=== PATIENT | male | born 1965 | race Caucasian/White ===

== ENCOUNTER 2018-09-24 06:25 | Inpatient (IN) ==
--- NOTE | 2018-08-27 12:12 | Anesthesiology Consultation ---
Date of Service August 27, 2018 Assessment & Plan (1) Encounter for pre-operative examination: PCP [facility] ([place]) 09/15 = "Medically stable to proceed with proposed surgical intervention with known associated comorbidities that currently have maximized control." Chart Review Chart Review: Acceptable Risk for Surgery and Patient seen in Pre Admission Testing Teaching & Discussion Instructed NPO after midnight before surgery, except medications with 15 cc of water. Medication instructions provided according to the PAT guidelines. History Surgery Operation Date: 09/24/18 08:00 Proposed Procedures p Right Total Knee Arthroplasty - Cosme Kessler MD Height/Weight Height: 6 ft 1 in Weight: 140.1 kg Allergies Allergy/AdvReac Type Severity Reaction Status Date / Time No Known Allergies Allergy Verified 08/20/18 08:01 Medications Home Medications Medication Instructions Recorded Confirmed Last Taken Nicotine Lozengers 1 dose PO UD 08/20/18 08/20/18 Unknown multivitamin 1 cap PO DAILY 08/20/18 08/20/18 Unknown Past Medical History Medical History Morbid obesity Osteoarthritis Exercise / Class Metabolic Activity II 4-5 Yardwork/Stairs/Walk up hill (Denies CP or SOB with stairs and yardwork) Past Family History Family History Grandfather (Maternal) Family history of prostate cancer Past Surgical History Surgical History History of arthroscopy of left knee History of arthroscopy of right knee X3 History of colonoscopy History of decompression of ulnar nerve LEFT History of deviated nasal septum History of tonsillectomy Past Anesthesia History No Hx of Anesthesia Complications and No Family Hx of Anesthesia Complications SINGLE EPISODE OF BEING COMBATIVE ON EMERGENCE IN 1997 AFTER KNEE SCOPE. History of PONV No Hx of PONV and No Hx of Motion Sickness Social History Smoking Status: Never smoker Do You Dip or Chew Tobacco: Yes (3-4 CHEWS A DAY, TRYING TO QUIT - ADVISED NPO) Hx Alcohol Use: No Hx Substance Use: No substance use type: does not use Review of Systems Pt denies any recent chest pain, shortness of breath, palpitations, cough, fever or URI. Physical Exam Vital Signs BP: 110/75 P: 76bpm SPO2: 97% RA T: 97.7 F R: 16 ENMT Mouth: + dental restorations (two caps on lower rear molars) and + chipped teeth (broken molar rear R lower); no loose teeth Thyromental Distance: > or= 3.5 Finger Breadths (4) Mallampati Class: I Neck normal visual inspection; neck extension not limited Respiratory normal respiratory effort Auscultation: lungs clear to auscultation bilaterally Cardiovascular Rate/Rhythm: regular rate and regular rhythm Heart Sounds: no murmur Vessels: no carotid bruit Extremities: no edema Testing Laboratory Results 08/27/18 12:20 08/27/18 12:20 PT 10.6 Seconds (9.0-12.0) 08/27/18 12:20 INR 1.0 (0.9-1.1) 08/27/18 12:20 APTT 25.4 Seconds (21.0-31.0) 08/27/18 12:20 Hemoglobin A1c 5.9 % (4.5-5.6) H 08/27/18 12:20 Urine Color Yellow 08/27/18 12:20 Urine Appearance Clear (Clear) 08/27/18 12:20 Urine pH 5.5 (4.5-7.5) 08/27/18 12:20 Ur Specific [place] 1.020 (1.000-1.030) 08/27/18 12:20 Urine Protein Negative (Negative) 08/27/18 12:20 Urine Glucose (UA) Negative (Negative) 08/27/18 12:20 Urine Ketones Negative (Negative) 08/27/18 12:20 Urine Nitrite Negative (Negative) 08/27/18 12:20 Ur Leukocyte Esterase Negative (Negative) 08/27/18 12:20 Blood Type A Negative 08/27/18 12:20 Antibody Screen NEGATIVE 08/27/18 12:20 08/27/18 12:20 Urine Culture - Final Urine,Clean Catch No growth - less than 1,000 colonies/mL. Electrocardiogram Date: 08/27/18 Findings: + NSR @ (67) Chest X-Ray Date: 08/27/18 Findings: + NAD
--- NOTE | 2018-08-27 12:13 | PAT Medication Instructions ---
Medication Instructions Date of Service August 27, 2018 Home Medications Nicotine Lozengers 1 dose PO UD multivitamin 1 cap PO DAILY DO NOT take the morning of surgery Nicotine Lozengers 1 dose PO UD multivitamin 1 cap PO DAILY Other Notes If you have any questions please call us at [phone] or [phone] or [phone] or [phone]
--- NOTE | 2018-08-27 13:05 | XRay Report ---
XR chest Pre-admission PA/Lat CLINICAL HISTORY: pat COMPARISON STUDY: No previous studies for comparison. FINDINGS: The bones soft tissues and hemidiaphragms are normal. The cardiomediastinal silhouette is n ormal. The lungs are clear. The pulmonary vasculature is normal. IMPRESSION: Negative chest. The above report was generated using voice recognition software. It may contain grammatical, syntax or spelling errors. Electronically signed by: Kee Dela Cruz M.D. 08/27/2018 1:04 PM
[2018-08-27 15:24] LABS: Basophils # (auto) 0.02 K/uL (0-0.2); Basophils % (auto) 0.3 %; Eosinophils # (auto) 0.16 K/uL (0-0.5); Eosinophils % (auto) 2.3 %; Hematocrit (blood only) 43.2 % (42-52); Hemoglobin 14.4 g/dL (14.0-18.0); Immature Granulocytes # (auto) 0.01 K/uL (0.00-0.02); Immature Granulocytes % (auto) 0.1 %; Lymphocytes # (auto) 2.63 K/uL (1.2-3.4); Lymphocytes % (auto) 38.4 %; Mean Corpuscular Hgb Conc 33.3 g/dL (32-36); Mean Corpuscular Volume 90.4 fL (80-100); Monocytes % (auto) 4.4 %; Neutrophils # (auto) 3.73 K/uL (1.4-6.5); Neutrophils % (auto) 54.5 %; Platelet Count 256 K/uL (130-400); RDW Coefficient of Variation 12.6 % (11.5-14.5); RDW Standard Deviation 41.4 fL (36.4-46.3); Red Blood Count 4.78 M/uL (4.7-6.1); White Blood Count 6.85 K/uL (4.8-10.8)
[2018-08-27 15:25] LABS: Appearance Urine Clear (Clear); Bilirubin Urine Negative (Negative); Blood Urine Negative (Negative); Color Urine Yellow; Glucose Urine UA Negative (Negative); Ketones Urine Negative (Negative); Leukocyte Esterase Urine Negative (Negative); Nitrite Urine Negative (Negative); Protein Urine Negative (Negative); Urobilinogen Urine Negative (Negative); pH Urine 5.5 (4.5-7.5)
[2018-08-27 15:30] LABS: Potassium 4.2 mmol/L (3.5-5.1)
[2018-08-27 15:31] LABS: Albumin Level 3.8 gm/dl (3.4-5.0); BUN Creatinine Ratio 12.3 (10-20); Calcium 9.4 mg/dl (8.5-10.1); Creatinine Clr Calc Pharmacy 113.2 ml/min; Est GFR (African American) 87.4; Est GFR (Non-African American) 75.4
[2018-08-27 15:34] LABS: Partial Thromboplastin Ratio 0.9; Partial Thromboplastin Time 25.4 Seconds (21.0-31.0); Prothrombin Time 10.6 Seconds (9.0-12.0)
[2018-08-28 05:37] LABS: Estimated Average Glucose 123 mg/dl; Hemoglobin A1C 5.9 % (4.5-5.6)
--- NOTE | 2018-09-03 21:17 | History & Physical Report ---
Date of Service September 03, 2018 Assessment & Plan (1) Primary osteoarthritis of right knee: Treatment options were discussed with the patient. He has continued pain despite conservative measures as above. Risks, benefits and alternatives to surgery including but not limited to infection, DVT, pain, stiffness, need for revision surgery, damage to blood vessels, damage to nerves, PE, , were discussed with the patient and they wish to proceed. Plan will be for right total knee arthroplasty. We will plan on aspirin 81mg BID x 30 days for DVT prophylaxis. He plans on attending outpatient PT upon discharge from the hospital. All questions were answered. History of Present Illness Chief Complaint: Right knee pain Primary Care Provider: Earl Carter 53 year old male with no significant past medical history presents with complaints of ongoing right knee pain. He has tried and failed various conservative therapies including cortisone injections, visco supplementation, NSAIDs, and PT. He has continued pain and dysfunction with normal daily activities. He would like to proceed with right knee replacement. Patient denies headaches, sweats, fevers, chills, double vision, blurred vision, cough, sore throat, dysphagia, chest pain, sob, wheezing, n/v/d/c, numbness, tingling, fatigue, urinary symptoms, mood disorders. ROS positive for right knee pain and stiffness. Allergies Allergy/AdvReac Type Severity Reaction Status Date / Time No Known Allergies Allergy Verified 08/20/18 08:01 Home Medications Home Medications Medication Instructions Recorded Confirmed Type Nicotine Lozengers 1 dose PO UD 08/20/18 08/20/18 History multivitamin 1 cap PO DAILY 08/20/18 08/20/18 History Past Med/Surg History Medical History Morbid obesity Osteoarthritis Surgical History History of arthroscopy of left knee History of arthroscopy of right knee X3 History of colonoscopy History of decompression of ulnar nerve LEFT History of deviated nasal septum History of tonsillectomy Family History Grandfather (Maternal) Family history of prostate cancer Social History Preferred Language: Malawian Communication Ability: Effective Commutator Operator Required: No Beliefs That Will Affect Care: None Current Living Situation: Spouse and Foster Care Other Information That Helps Us Care for You: No Feels Safe at Home: Yes Smoking Status: Never smoker Do You Dip or Chew Tobacco: Yes (3-4 CHEWS A DAY, TRYING TO QUIT - ADVISED NPO) Hx Alcohol Use: No Hx Substance Use: No Review of Systems All systems reviewed & are unremarkable except as noted in HPI & below Physical Exam Constitutional: well developed and well nourished; no acute distress Eyes: PERRL, conjunctivae normal, anicteric sclerae ENMT: external ear and nose normal, oropharynx normal Neck: trachea midline, no thyromegaly Respiratory: normal respiratory effort, lungs clear to auscultation Cardiovascular: RRR, no murmur, no edema Musculoskeletal: Right knee: Tenderness medial joint line, stable to valgus and varus stress. Positive Pratima's. ROM 0-130. Skin: no rashes, warm and dry Neurologic: patellar DTR's 2+ bilat, sensation intact Psychiatric: A+Ox3, euthymic affect Results & Data Laboratory Results Lab Results 08/27/18 08/27/18 08/27/18 Range/Units 12:20 12:20 12:20 WBC 6.85 (4.8-10.8) K/uL RBC 4.78 (4.7-6.1) M/uL Hgb 14.4 (14.0-18.0) g/dL Hct 43.2 (42-52) % MCV 90.4 (80-100) fL MCH 30.1 (25-34) pg MCHC 33.3 (32-36) g/dL RDW Std Deviation 41.4 (36.4-46.3) fL RDW Coeff of Kia 12.6 (11.5-14.5) % Plt Count 256 (130-400) K/uL MPV 11.0 H (7.4-10.4) fL Immature Gran % (Auto) 0.1 % Neut % (Auto) 54.5 % Lymph % (Auto) 38.4 % [place] % (Auto) 4.4 % Eos % (Auto) 2.3 % Baso % (Auto) 0.3 % Immature Gran # (Auto) 0.01 (0.00-0.02) K/uL Neut # (Auto) 3.73 (1.4-6.5) K/uL Lymph # (Auto) 2.63 (1.2-3.4) K/uL [place] # (Auto) 0.30 (0.11-0.59) K/uL Eos # (Auto) 0.16 (0-0.5) K/uL Baso # (Auto) 0.02 (0-0.2) K/uL PT 10.6 (9.0-12.0) Seconds INR 1.0 (0.9-1.1) APTT 25.4 (21.0-31.0) Seconds PTT Ratio 0.9 Sodium (136-145) mmol/L Potassium (3.5-5.1) mmol/L Chloride (98-107) mmol/L Carbon Dioxide (21-32) mmol/L Anion Gap (3-11) BUN (7-18) mg/dl Creatinine (0.6-1.4) mg/dl Est Cr Clr Drug Dosing ml/min Est GFR ( Amer) Est GFR (Non-Af Amer) BUN/Creatinine Ratio (10-20) Glucose (70-99) mg/dl Estimat Average Glucose mg/dl Hemoglobin A1c (4.5-5.6) % Calcium (8.5-10.1) mg/dl Albumin (3.4-5.0) gm/dl Urine Color Yellow Urine Appearance Clear (Clear) Urine pH 5.5 (4.5-7.5) Ur Specific [place] 1.020 (1.000-1.030) Urine Protein Negative (Negative) Urine Glucose (UA) Negative (Negative) Urine Ketones Negative (Negative) Urine Blood Negative (Negative) Urine Nitrite Negative (Negative) Urine Bilirubin Negative (Negative) Urine Urobilinogen Negative (Negative) Ur Leukocyte Esterase Negative (Negative) Blood Type Antibody Screen 08/27/18 08/27/18 08/27/18 Range/Units 12:20 12:20 12:20 WBC (4.8-10.8) K/uL RBC (4.7-6.1) M/uL Hgb (14.0-18.0) g/dL Hct (42-52) % MCV (80-100) fL MCH (25-34) pg MCHC (32-36) g/dL RDW Std Deviation (36.4-46.3) fL RDW Coeff of Kia (11.5-14.5) % Plt Count (130-400) K/uL MPV (7.4-10.4) fL Immature Gran % (Auto) % Neut % (Auto) % Lymph % (Auto) % [place] % (Auto) % Eos % (Auto) % Baso % (Auto) % Immature Gran # (Auto) (0.00-0.02) K/uL Neut # (Auto) (1.4-6.5) K/uL Lymph # (Auto) (1.2-3.4) K/uL [place] # (Auto) (0.11-0.59) K/uL Eos # (Auto) (0-0.5) K/uL Baso # (Auto) (0-0.2) K/uL PT (9.0-12.0) Seconds INR (0.9-1.1) APTT (21.0-31.0) Seconds PTT Ratio Sodium 142 (136-145) mmol/L Potassium 4.2 (3.5-5.1) mmol/L Chloride 106 (98-107) mmol/L Carbon Dioxide 30 (21-32) mmol/L Anion Gap 5.0 (3-11) BUN 14 (7-18) mg/dl Creatinine 1.11 (0.6-1.4) mg/dl Est Cr Clr Drug Dosing 113.2 ml/min Est GFR ( Amer) 87.4 Est GFR (Non-Af Amer) 75.4 BUN/Creatinine Ratio 12.3 (10-20) Glucose 104 H (70-99) mg/dl Estimat Average Glucose 123 mg/dl Hemoglobin A1c 5.9 H (4.5-5.6) % Calcium 9.4 (8.5-10.1) mg/dl Albumin 3.8 (3.4-5.0) gm/dl Urine Color Urine Appearance (Clear) Urine pH (4.5-7.5) Ur Specific [place] (1.000-1.030) Urine Protein (Negative) Urine Glucose (UA) (Negative) Urine Ketones (Negative) Urine Blood (Negative) Urine Nitrite (Negative) Urine Bilirubin (Negative) Urine Urobilinogen (Negative) Ur Leukocyte Esterase (Negative) Blood Type A Negative Antibody Screen NEGATIVE Diagnostic Findings Right knee radiographs: [id number] medial compartment, mild medial subluxation. Degenerative changes patellofemoral joint. Periarticular osteophyte formation.
[~2018-09-24 06:25] MED LIST: ACETAMINOPHEN 500 MG TAB PO SCH; CEFAZOLIN 2000MG 2,000 MG/15 ML SYR IV SCH; CeleBREX 200 MG CAP PO SCH; FAMOTIDINE 20 MG TAB PO SCH; LR 500ML BOLUS, THEN 15ML/HR IV SCH; METOCLOPRAMIDE HCL 10 MG TABLET PO SCH; ROPIVACAINE 0.5% HCL/PF 150 MG, BUPIVACAINE 0.5% MPF 30 ML, EPINEPHrine 30MG/30ML (OR U... INSTIL SCH; TRANEXAMIC ACID 1,000 MG **IV Pre-op IV SCH; dexAMETHasone 4 MG TAB PO SCH
[2018-09-24] MEDS ORDERED: BUPIVACAINE 0.5 % 5 MG/1 ML PF 10ML VIAL ONE (06:29)
[2018-09-24] MEDS ORDERED: ROPIVACAINE 0.5% 5 MG/ML 30 ML VIAL ONE (06:29)
[2018-09-24] MEDS ORDERED: TRANEXAMIC ACID 1,000 MG **IV Intra-op IV SCH (06:30)
--- NOTE | 2018-09-24 06:58 | History & Physical Bridge Note ---
Date of Service September 24, 2018 History & Physical Bridge Note I have examined the patient, reviewed the History & Physical and in the interval since the performance of the History & Physical I have noted the following changes of clinical significance: no changes noted
[2018-09-24] MEDS ORDERED: PROPOFOL IV EMULSION 10 MG/ML 20 ML VIAL IV ONE ×3 (07:19→10:10)
[2018-09-24] MEDS ORDERED: LIDOCAINE HCL 2% 2 ML VIAL/AMP(20MG/ML) INFIL ONE (07:19)
[2018-09-24] MEDS ORDERED: ePHEDrine sulfate 50 MG/ML SYR ONE (07:19)
[2018-09-24] MEDS ORDERED: PHENYLEPHRINE 100MCG/ML 5ML SYR ONE (07:19)
[2018-09-24] MEDS ORDERED: MIDAZOLAM HCL 1 MG/ML 2ML VIAL ONE (07:20)
[2018-09-24] MEDS ORDERED: fentaNYL citrate 100 MCG/2 ML VIAL ONE (07:20)
[2018-09-24] MEDS ORDERED: ONDANSETRON INJ 2 MG/ML 2 ML VIAL IV PRN ×2 (08:10→12:00)
[2018-09-24] MEDS ORDERED: HYDROmorphone INJ 1 MG/ML SYRINGE IV PRN (08:10)
[2018-09-24] MEDS ORDERED: ePHEDrine sulfate 50 MG/ML AMP IV PRN (08:10)
[2018-09-24] MEDS ORDERED: KETOROLAC 30 MG/ML VIAL IV PRN (08:10)
[2018-09-24] MEDS ORDERED: ATROPINE SULFATE 0.1 MG/ML 10ML SYR IV PRN (08:10)
[2018-09-24] MEDS ORDERED: ORTHO JOINT ANESTHETIC ONE (08:32)
[2018-09-24] MEDS ORDERED: BACITRACIN INJ 50,000 UNIT VIAL ONE (08:32)
[2018-09-24] MEDS ORDERED: CEFAZOLIN 250 MG/ML 1 GM VIAL ONE (09:19)
--- NOTE | 2018-09-24 10:08 | Operative Report ---
Post Operative Report Pre & Post Diagnosis Operation Date: 09/24/18 09:00 Pre-Op Diagnosis: RIGHT KNEE OSTEOARTHRITIS Post-Op Diagnosis: RIGHT KNEE OSTEOARTHRITIS Procedure Operation Date: 09/24/18 09:00 Actual Procedures p Right Total Knee Arthroplasty(Right) - Cosme Kessler MD Surgeon Cosme Kessler MD Director Of Planning Darien Douglas PA-C Estimated Blood Loss 20 Findings Consistent with Post-Op Diagnosis Specimens Bone and tissue Drains 2 Hemovac Anesthesia Type Spinal MAC Complications none Disposition Accompanied Patient To Recovery: No Disposition: Recovery Room Indications The patient is a 53-year-old male long-standing arthritis of the right knee. He has [id number] medial compartment. He is failed conservative measures including injection anti-inflammatories. He wishes to proceed with a right total knee arthroplasty. Description of Procedure Risks benefits and alternatives of surgery including but not limited to infection, DVT, pain, stiffness, need for surgery, damage to blood vessels, damage to nerves or risks of anesthesia were discussed with the patient and they wished to proceed. The patient was identified and the laterality was confirmed and marked. They received a preoperative antibiotic as well as a spinal anesthetic and an abductor canal block. A well-padded tourniquet was applied and then the limb was prepped and draped in standard manner with ChloraPrep. The limb was exsanguinated and the tourniquet was inflated. I made a standard anterior incision. I sharply incised the skin then utilized Bovie electrocautery to achieve hemostasis. I made a medial parapatellar arthrotomy and mobilized the patella laterally. I then excised the anterior horns of the medial and lateral meniscus as well as the infrapatellar fat pad. I elevated a portion of the MCL off of the tibia. I then pinned into place a patient-matched distal femoral cutting guide and made my distal femoral resectio n. I then pinned into place the 5 in 1 femoral cutting guide. I made my anterior, posterior and chamfer cuts. I then excised the cruciates and the remaining portions of the menisci. I then pinned into place a patient- matched tibial cutting guide and made my tibial resection. I then pinned into place the tibial plate a utilizing alignment gino to confirm rotation. I then cut for the post. Utilizing a lamina belt maker helper and I then removed posterior osteophytes off the femur. I then placed a trial femur into position and cut for the trochlear component. I then sequentially trialed to size the polyethylene until there was good soft tissue balancing and range of motion. I then prepared the patella with a freehand cut utilizing sagittal saw. I sized and drilled for the patella. There was some lateral tracking the patella. I performed a lateral release. I was able to preserve the joint capsule. There was good tracking to the patella after the lateral release was performed. All the trial components were removed. The deep tissues were anesthetized with an ortho mix solution. Then with Simplex HV with gentamicin cement, I cemented my definitive components. Definitive components, Najera and Nephew [place] fork 2: Femur 6 Tibia 6 Poly 9 Patella 35 oval A betadine soak was performed. A deep drain was placed. The arthrotomy was closed with interrupted #1 Vicryl suture subcutaneous tissue was closed with interrupted 2-0 Vicryl suture. The skin was closed with with jean-claude. An Acticoat and Darryl dressing were placed. Sterile dressings were applied. All needle and sponge counts were correct at the end of the procedure patient was transferred to the PACU in stable condition without apparent complication. The PA-C was necessary for assistance with procedure for assistance in positioning, prepping, draping, retraction and closure. I attest to the content of the Intraoperative Record and any orders documented therein. Any exceptions are noted below.
--- NOTE | 2018-09-24 11:27 | XRay Report ---
RIGHT KNEE 2 VIEWS History: Right total knee arthroplasty. Degenerative arthritis. Postop. FINDINGS: The patient is status post a right total knee arthroplasty. The hardware is intact. No frac ture or dislocation. Skin jean-claude and surgical drains are in place. IMPRESSION: Right total knee arthroplasty. No evidence for hardware complication. Electronically signed by: Patric Luna M.D. 09/24/2018 11:25 AM
--- NOTE | 2018-09-24 11:33 | Anesthesiology Progress Note ---
Date of Service September 24, 2018 Anesthesia Post Procedure Vital Signs Vital Signs: Temp Pulse Pulse Resp BP Pulse Ox 09/24/18 11:25 36.2 C L 68 16 99/62 L 97 09/24/18 11:15 67 16 109/64 98 09/24/18 11:05 69 16 109/62 99 09/24/18 10:55 75 16 101/58 L 98 09/24/18 10:47 36.2 C L 80 16 98/54 L 96 09/24/18 07:17 36.4 C L 70 20 136/96 95 Pain Intensity Right Knee: Pain Intensity: 5 Transfer of Care Handoff Completed per policy Notes Mental Status: alert / awake / arousable Patient Amnestic to Procedure: Yes Nausea / Vomiting: adequately controlled Pain: adequately controlled Airway Patency, RR, SpO2: stable & adequate BP & HR: stable & adequate Hydration State: stable & adequate Anesthetic Complications: no major complications apparent
[2018-09-24] MEDS ORDERED: HYDROmorphone INJ 0.5 MG/0.5 ML SYR IV PRN (12:00)
[2018-09-24] MEDS ORDERED: MAGNESIUM HYDROXIDE SUSP 30 ML UDC PO PRN (12:00)
[2018-09-24] MEDS ORDERED: BISACODYL 10 MG SUPP PR PRN (12:00)
[2018-09-24] MEDS ORDERED: NALOXONE HCL 0.4 MG/1 ML VIAL/CARP IV PRN (12:00)
[2018-09-24] MEDS ORDERED: ALUMINUM/MAGNESIUM SUSP 30 ML UDC PO PRN (12:00)
[2018-09-24] MEDS ORDERED: METOCLOPRAMIDE HCL INJ 5 MG/ML 2 ML VIAL IV PRN (12:00)
[2018-09-24] MEDS ORDERED: TAMSULOSIN HCL 0.4 MG CAP PO PRN (12:00)
[2018-09-24] MEDS: ACETAMINOPHEN 500 MG TAB PO SCH ×2 (13:54→22:39)
[2018-09-24] MEDS: CEFAZOLIN 2000MG 2,000 MG/15 ML SYR IV SCH (17:46)
[2018-09-24] MEDS: SODIUM CHLORIDE 0.9% 1000ML 1,000 ML IV SCH (20:36)
[2018-09-24] MEDS: SENNA 8.6 MG TAB PO SCH (20:36)
[2018-09-24] MEDS: ASPIRIN 81 MG ECTAB PO SCH (20:36)
[2018-09-24] MEDS: DOCUSATE SODIUM 100 MG CAP PO SCH (20:36)
[2018-09-25] MEDS: SODIUM CHLORIDE 0.9% 1000ML 1,000 ML IV SCH (01:39)
[2018-09-25] MEDS: CEFAZOLIN 2000MG 2,000 MG/15 ML SYR IV SCH (01:50)
[2018-09-25] MEDS: ACETAMINOPHEN 500 MG TAB PO SCH ×3 (05:53→21:36)
[2018-09-25 06:07] LABS: Hematocrit (blood only) 38.1 % (42-52); Hemoglobin 12.6 g/dL (14.0-18.0); Mean Corpuscular Hgb Conc 33.1 g/dL (32-36); Mean Corpuscular Volume 89.4 fL (80-100); Mean Platelet Volume 10.6 fL (7.4-10.4); Platelet Count 264 K/uL (130-400); RDW Coefficient of Variation 12.8 % (11.5-14.5); RDW Standard Deviation 40.9 fL (36.4-46.3); Red Blood Count 4.26 M/uL (4.7-6.1); White Blood Count 18.53 K/uL (4.8-10.8)
[2018-09-25 06:50] LABS: Calcium 8.2 mg/dl (8.5-10.1); Creatinine Clr Calc Pharmacy 108.6 ml/min; Est GFR (African American) 82.9; Est GFR (Non-African American) 71.5; Potassium 4.1 mmol/L (3.5-5.1)
--- NOTE | 2018-09-25 07:23 | Orthopedic Progress Note ---
Date of Service September 25, 2018 Assessment & Plan (1) Primary osteoarthritis of right knee: POD#1 Right TKA -Pain management -DVT prophylaxis-ASA 81mg BID -PT/OT -D/C planning home with OPPT likely later today as long as PT goes well and hemovac output decreases. Subjective Patient in resting comfortably in bed this morning. Pain well controlled. Did have some foot drop yesterday, this has mostly resolved. No chest pain, sob, dizziness, headache, n/v/d. Review of Systems Review of Systems: All systems reviewed & are unremarkable except as noted in HPI & below Physical Exam Physical Exam: Dressing c/d/i, toes mobile, good DF. No calf tenderness. Sensation and n/v status intact. Results & Data Vital Signs (Past 12 Hours) Vital Signs Temp Pulse Resp BP Pulse Ox 09/25/18 07:22 36.4 C L 76 16 106/68 96 09/25/18 03:41 36.5 C 84 16 108/68 97 09/24/18 23:17 36.9 C 89 18 120/74 96 Laboratory Results Lab Results 08/27/18 08/27/18 08/27/18 Range/Units 12:20 12:20 12:20 WBC 6.85 (4.8-10.8) K/uL RBC 4.78 (4.7-6.1) M/uL Hgb 14.4 (14.0-18.0) g/dL Hct 43.2 (42-52) % MCV 90.4 (80-100) fL MCH 30.1 (25-34) pg MCHC 33.3 (32-36) g/dL RDW Std Deviation 41.4 (36.4-46.3) fL RDW Coeff of Kia 12.6 (11.5-14.5) % Plt Count 256 (130-400) K/uL MPV 11.0 H (7.4-10.4) fL Immature Gran % (Auto) 0.1 % Neut % (Auto) 54.5 % Lymph % (Auto) 38.4 % [place] % (Auto) 4.4 % Eos % (Auto) 2.3 % Baso % (Auto) 0.3 % Immature Gran # (Auto) 0.01 (0.00-0.02) K/uL Neut # (Auto) 3.73 (1.4-6.5) K/uL Lymph # (Auto) 2.63 (1.2-3.4) K/uL [place] # (Auto) 0.30 (0.11-0.59) K/uL Eos # (Auto) 0.16 (0-0.5) K/uL Baso # (Auto) 0.02 (0-0.2) K/uL PT 10.6 (9.0-12.0) Seconds INR 1.0 (0.9-1.1) APTT 25.4 (21.0-31.0) Seconds PTT Ratio 0.9 Sodium (136-145) mmol/L Potassium (3.5-5.1) mmol/L Chloride (98-107) mmol/L Carbon Dioxide (21-32) mmol/L Anion Gap (3-11) BUN (7-18) mg/dl Creatinine (0.6-1.4) mg/dl Est Cr Clr Drug Dosing ml/min Est GFR ( Amer) Est GFR (Non-Af Amer) BUN/Creatinine Ratio (10-20) Glucose (70-99) mg/dl Estimat Average Glucose mg/dl Hemoglobin A1c (4.5-5.6) % Calcium (8.5-10.1) mg/dl Albumin (3.4-5.0) gm/dl Urine Color Yellow Urine Appearance Clear (Clear) Urine pH 5.5 (4.5-7.5) Ur Specific [place] 1.020 (1.000-1.030) Urine Protein Negative (Negative) Urine Glucose (UA) Negative (Negative) Urine Ketones Negative (Negative) Urine Blood Negative (Negative) Urine Nitrite Negative (Negative) Urine Bilirubin Negative (Negative) Urine Urobilinogen Negative (Negative) Ur Leukocyte Esterase Negative (Negative) Blood Type Antibody Screen 08/27/18 08/27/18 08/27/18 Range/Units 12:20 12:20 12:20 WBC (4.8-10.8) K/uL RBC (4.7-6.1) M/uL Hgb (14.0-18.0) g/dL Hct (42-52) % MCV (80-100) fL MCH (25-34) pg MCHC (32-36) g/dL RDW Std Deviation (36.4-46.3) fL RDW Coeff of Kia (11.5-14.5) % Plt Count (130-400) K/uL MPV (7.4-10.4) fL Immature Gran % (Auto) % Neut % (Auto) % Lymph % (Auto) % [place] % (Auto) % Eos % (Auto) % Baso % (Auto) % Immature Gran # (Auto) (0.00-0.02) K/uL Neut # (Auto) (1.4-6.5) K/uL Lymph # (Auto) (1.2-3.4) K/uL [place] # (Auto) (0.11-0.59) K/uL Eos # (Auto) (0-0.5) K/uL Baso # (Auto) (0-0.2) K/uL PT (9.0-12.0) Seconds INR (0.9-1.1) APTT (21.0-31.0) Seconds PTT Ratio Sodium 142 (136-145) mmol/L Potassium 4.2 (3.5-5.1) mmol/L Chloride 106 (98-107) mmol/L Carbon Dioxide 30 (21-32) mmol/L Anion Gap 5.0 (3-11) BUN 14 (7-18) mg/dl Creatinine 1.11 (0.6-1.4) mg/dl Est Cr Clr Drug Dosing 113.2 ml/min Est GFR ( Amer) 87.4 Est GFR (Non-Af Amer) 75.4 BUN/Creatinine Ratio 12.3 (10-20) Glucose 104 H (70-99) mg/dl Estimat Average Glucose 123 mg/dl Hemoglobin A1c 5.9 H (4.5-5.6) % Calcium 9.4 (8.5-10.1) mg/dl Albumin 3.8 (3.4-5.0) gm/dl Urine Color Urine Appearance (Clear) Urine pH (4.5-7.5) Ur Specific [place] (1.000-1.030) Urine Protein (Negative) Urine Glucose (UA) (Negative) Urine Ketones (Negative) Urine Blood (Negative) Urine Nitrite (Negative) Urine Bilirubin (Negative) Urine Urobilinogen (Negative) Ur Leukocyte Esterase (Negative) Blood Type A Negative Antibody Screen NEGATIVE 09/25/18 09/25/18 Range/Units 05:32 05:32 WBC 18.53 H (4.8-10.8) K/uL RBC 4.26 L (4.7-6.1) M/uL Hgb 12.6 L (14.0-18.0) g/dL Hct 38.1 L (42-52) % MCV 89.4 (80-100) fL MCH 29.6 (25-34) pg MCHC 33.1 (32-36) g/dL RDW Std Deviation 40.9 (36.4-46.3) fL RDW Coeff of Kia 12.8 (11.5-14.5) % Plt Count 264 (130-400) K/uL MPV 10.6 H (7.4-10.4) fL Immature Gran % (Auto) % Neut % (Auto) % Lymph % (Auto) % [place] % (Auto) % Eos % (Auto) % Baso % (Auto) % Immature Gran # (Auto) (0.00-0.02) K/uL Neut # (Auto) (1.4-6.5) K/uL Lymph # (Auto) (1.2-3.4) K/uL [place] # (Auto) (0.11-0.59) K/uL Eos # (Auto) (0-0.5) K/uL Baso # (Auto) (0-0.2) K/uL PT (9.0-12.0) Seconds INR (0.9-1.1) APTT (21.0-31.0) Seconds PTT Ratio Sodium 141 (136-145) mmol/L Potassium 4.1 (3.5-5.1) mmol/L Chloride 109 H (98-107) mmol/L Carbon Dioxide 27 (21-32) mmol/L Anion Gap 5.0 (3-11) BUN 16 (7-18) mg/dl Creatinine 1.16 (0.6-1.4) mg/dl Est Cr Clr Drug Dosing 108.6 ml/min Est GFR ( Amer) 82.9 Est GFR (Non-Af Amer) 71.5 BUN/Creatinine Ratio 14.0 (10-20) Glucose 117 H (70-99) mg/dl Estimat Average Glucose mg/dl Hemoglobin A1c (4.5-5.6) % Calcium 8.2 L (8.5-10.1) mg/dl Albumin (3.4-5.0) gm/dl Urine Color Urine Appearance (Clear) Urine pH (4.5-7.5) Ur Specific [place] (1.000-1.030) Urine Protein (Negative) Urine Glucose (UA) (Negative) Urine Ketones (Negative) Urine Blood (Negative) Urine Nitrite (Negative) Urine Bilirubin (Negative) Urine Urobilinogen (Negative) Ur Leukocyte Esterase (Negative) Blood Type Antibody Screen
[2018-09-25] MEDS: DOCUSATE SODIUM 100 MG CAP PO SCH ×2 (07:29→21:35)
[2018-09-25] MEDS: MULTIVITAMIN TAB PO SCH (07:29)
[2018-09-25] MEDS: ASPIRIN 81 MG ECTAB PO SCH ×2 (07:29→21:35)
[2018-09-25] MEDS: OXYCODONE HCL IR 5 MG TAB (IMMEDIATE RELEASE) PO PRN ×2 (07:32→18:45)
--- NOTE | 2018-09-25 07:50 | Anesthesiology Progress Note ---
Date of Service September 25, 2018 Anesthesia Post Procedure Vital Signs Vital Signs: Temp Pulse Pulse Pulse Resp BP Pulse Ox 09/25/18 07:22 36.4 C L 76 16 106/68 96 09/25/18 03:41 36.5 C 84 16 108/68 97 09/24/18 23:17 36.9 C 89 18 120/74 96 09/24/18 14:57 36.9 C 84 17 110/72 94 09/24/18 14:00 78 16 120/71 96 09/24/18 13:00 76 16 107/72 97 09/24/18 12:30 69 18 107/68 97 09/24/18 12:00 36.6 C 65 12 112/66 94 09/24/18 11:45 36.4 C L 68 18 116/66 97 09/24/18 11:35 36.4 C L 72 18 109/65 98 09/24/18 11:25 36.2 C L 68 16 99/62 L 97 09/24/18 11:15 67 16 109/64 98 09/24/18 11:05 69 16 109/62 99 09/24/18 10:55 75 16 101/58 L 98 09/24/18 10:47 36.2 C L 80 16 98/54 L 96 Pain Intensity Right Knee: Pain Intensity: 4 Notes Mental Status: alert / awake / arousable and participated in evaluation Patient Amnestic to Procedure: Yes Nausea / Vomiting: adequately controlled Pain: adequately controlled Airway Patency, RR, SpO2: stable & adequate BP & HR: stable & adequate Hydration State: stable & adequate Neuraxial Anesthesia: was administered and sensory block resolved Anesthetic Complications: no major complications apparent and Pt Satisfied with anesthetic care
[2018-09-25] MEDS: SENNA 8.6 MG TAB PO SCH (21:36)
[2018-09-26] MEDS: OXYCODONE HCL IR 5 MG TAB (IMMEDIATE RELEASE) PO PRN ×2 (04:37→12:20)
[2018-09-26] MEDS: ACETAMINOPHEN 500 MG TAB PO SCH ×2 (05:31→13:18)
[2018-09-26] MEDS: MULTIVITAMIN TAB PO SCH (08:28)
[2018-09-26] MEDS: ASPIRIN 81 MG ECTAB PO SCH (08:28)
[2018-09-26] MEDS: DOCUSATE SODIUM 100 MG CAP PO SCH (08:28)
--- NOTE | 2018-09-26 09:22 | Orthopedic Progress Note ---
Date of Service September 26, 2018 Assessment & Plan (1) Primary osteoarthritis of right knee: POD #2 s/p right TKA Pain is controlled. PT/OT DVT prophylaxis--ASA 81 mg BID and TEDs D/C planning--home today with outpatient PT Subjective Patient in resting comfortably in bed this morning. No complaints. Pain well controlled. No chest pain, sob, dizziness, headache, n/v/d. Physical Exam Constitutional: WD/WN, vitals as above Musculoskeletal: Knee: + surgical incision (Right knee: ROSANNE dressing in place and functioning. ); knee normal to inspection, no deformity, no skin erythema, no ecchymosis and no surgical drain present (Hemovac has been removed after 50 cc of drainage over the previous shift.) Psychiatric: A+Ox3, euthymic affect Results & Data Vital Signs (Past 12 Hours) Vital Signs Temp Pulse Resp BP Pulse Ox 09/26/18 06:57 36.8 C 74 18 122/75 97 09/25/18 23:25 36.7 C 90 16 111/72 97
--- NOTE | 2018-09-28 17:20 | Discharge Summary ---
DISCHARGE DIAGNOSIS: Degenerative joint disease, right knee. SECONDARY DIAGNOSES: Morbid obesity. CONSULTS: None. COMPLICATIONS: None. PROCEDURES: Right total knee arthroplasty performed by Dr. Kessler on 09/24/2018. BRIEF HISTORY: As dictated in the history and physical. HOSPITAL SUMMARY: The patient was admitted on the above-noted date and had the above-noted surgery performed, which he tolerated well. On the first postoperative day, he was resting comfortably in bed. Pain was controlled. He did have some footdrop symptoms the previous day which had mostly resolved by that morning. No chest pain, no shortness of breath. No dizziness or nausea or vomiting. Dressings clean, dry and intact. Toes were mobile. He had good dorsiflexion. No calf tenderness. Sensation and neurovascular status intact. Vital signs were stable. He was afebrile and hemoglobin was 14. He was started on physical therapy protocol and continued on DVT prophylaxis and pain management. It was noted that he was having increased drainage from his Hemovac drain at over 175 mL and Hemovac was continued. By his second postoperative day, he was resting comfortably, had no complaints. Pain was controlled. Darryl dressing was in place. He had no ecchymosis, no erythema. Hemovac had been removed. Vital signs were stable. He was afebrile. He was progressing with his PT and remaining stable. It was felt he could be discharged to home. For further review, please see chart. LABORATORY AND X-RAY DATA: As per chart. DISCHARGE INSTRUCTIONS: The patient was discharged to home in satisfactory condition on 09/25/2018. DIET: Regular. ACTIVITY: Weightbearing as tolerated on the affected extremity. Follow TK instruction sheets and special care instructions as noted. Follow up with Dr. Kessler in 2 weeks. The patient to call for appointment if one has not been made for you. DISCHARGE MEDICATIONS: Acetaminophen 1000 mg p.o. q. 8 hours, aspirin 81 mg p.o. b.i.d., Celebrex 200 mg p.o. b.i.d. and oxycodone 5-10 mg p.o. q. 4-6 hours p.r.n. Resume home meds as listed.
== END 2018-09-26 15:31 | disposition home health service (06) | DRG 470 ==
LOC: ASU 06:25 → 3E 10:53